=== PATIENT | male | born 1935 | race Caucasian/White ===

== ENCOUNTER → 2018-05-19 | Outpatient (CLI) | payer MEDICARE ==
[~2018-05-19] MED LIST: ALLOPURINOL 10100 M1 PO; ALLOPURINOL 10100 M2 PO; AMARYL4 MG PO; ASPIR 8181 MG PO; DEMADEX20 MG PO; DOXAZOSIN MESYLA2 MG PO; FENOFIBRATE160 MG PO; FISH OIL 1,001000 M2 PO; FLECAINIDE ACET50 M2 PO; FLOMAX0.4 MG PO; KLOR-CON 1010 MEQ PO; LASIX 20 MG TAB20 MG PO; RANITIDINE 150150 M1 PO; XARELTO20 MG PO; ZOCOR20 MG PO
[2018-05-19 09:06] VITALS: BP 133/79
[2018-05-19 09:10] LABS: HEMATOCRIT 40.2 % (42.0-52.0); HEMOGLOBIN 13.4 gm/dL (14.0-18.0); MCH 29.6 pg (26.0-34.0); MCHC 33.3 g/dL (28.0-37.0); MCV 88.7 fL (80.0-100.0); MPV 8.6 fl. (7.2-11.1); RBC 4.53 mil/uL (4.50-6.00); RDW-CV 13.9 % (10.5-14.5); WBC 6.7 thou/uL (4.0-11.0)
[2018-05-19 09:24] VITALS: BP 133/79
[2018-05-19 09:24] LABS: ALBUMIN 3.5 g/dL (3.4-5.0); CALCIUM 8.5 mg/dL (8.5-10.1); CREATININE 1.5 mg/dL (0.6-1.3); POTASSIUM 4.2 mmol/L (3.5-5.1); TOTAL BILIRUBIN 0.4 mg/dL (<0.1-1.0); TOTAL PROTEIN 6.5 g/dL (6.4-8.2)
[2018-05-19 09:30] VITALS: BP 134/84
[2018-05-19 09:32] LABS: APTT 45.4 Seconds (25.0-31.3); INR 1.2; PROTIME 12.4 Seconds (9.20-11.50)
[2018-05-19 09:42] VITALS: BP 120/70
[2018-05-19 09:46] VITALS: BP 127/82
--- NOTE | 2018-05-19 17:09 | EKG ---
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1935 Requested By: Brooks Kelley Order Number: [id number] Reading MD: Brooks Kelley Measurements Intervals [place] Rate: 69 P: 0 MD: 88 QRS: -73 QRSD: 171 T: 96 QT: 431 QTc: 462 Interpretive Statements Ventricular-paced complexes No further analysis attempted due to paced rhythm Baseline wander in lead(s) V1 No previous ECG available for comparison Electronically Signed On 05-19-2018 17:09:38 CDT by Brooks Kelley [email or web address] <ELECTRONICALLY SIGNED> By: Brooks Kelley MD, [facility] 05/19/18 1709 1 1 Brooks Kelley MD, FACC /EPI
--- NOTE | 2018-06-01 08:39 | CARD ---
[address] [address] CARDIAC CATH REPORT Name: PRAFUL ROSENBERG [id number] Admission: 05/19/18 Attend Phys: Brooks Kelley MD Discharge: Date of : 37 Report #: [id number] THIS REPORT FOR: //name// CC: Kurt Kelley DATE OF SERVICE: 05/19/2018 PROCEDURE: DC cardioversion. INDICATION: Persistent atrial fibrillation. DESCRIPTION OF PROCEDURE: After informed consent was obtained, the patient was brought to the cardiac holding area. The patient was given intravenous fentanyl and Versed for conscious sedation. Once the patient was adequately sedated, he was cardioverted to normal sinus rhythm with a single biphasic shock of 300 joules. The patient tolerated the procedure well and without complication. IMPRESSION: 1. Persistent atrial fibrillation. 2. Successful direct current cardioversion to normal sinus rhythm. <ELECTRONICALLY SIGNED> By: Brooks Kelley MD, FACC 06/01/18 0839 1323 1441[facility] Олег Kelley MD, FACC /nt
== END | disposition home or self-care (01) ==
LOC: M.CL 08:02
PROVIDERS: Internal Medicine Cardiovascular Disease
DX: I48.91 Unspecified atrial fibrillation (principal); Z79.01 Long term (current) use of anticoagulants; Z79.899 Other long term (current) drug therapy

== ENCOUNTER → 2020-05-23 | Outpatient (CLI) | payer MEDICARE ==
[2020-05-23] VITALS (8 sets, daily range): BP systolic 102–127; BP diastolic 58–699
[~2020-05-23] MED LIST changes: +AMARYL2 MG PO; +CHERRY TART PO; +COREG6.25 MG PO; +ENTRESTO 49 MG1 EACH PO; +MULTI VITAMIN1 EACH PO; +PRESERVISION A1 EAC2 PO; +STOOL SOFTENER100 M1 PO; +ZOCOR 10 MG TAB10 M1 PO
--- NOTE | ~2020-05-23 | CARD ---
[address] [address] CARDIAC CATH REPORT Name: PRAFUL ROSENBERG Room: [facility]#: [id number] Admission: 05/23/20 Attend Phys: Brooks Kelley MD Discharge: Date of : 37 Report #: [id number] THIS REPORT FOR: cc: Kurt Dupree,Brooks Hawthorne MD [facility] ~ DATE OF SERVICE: 05/23/2020 PROCEDURE: DC cardioversion. INDICATION: Persistent atrial fibrillation. DESCRIPTION OF PROCEDURE: After informed consent was obtained, the patient was brought to the cardiac catheterization holding area. The patient was given intravenous Versed and fentanyl for conscious sedation. Once the patient was adequately sedated, he was shocked into an atrially and ventricularly paced rhythm after a single biphasic shock of 300 joules. The patient tolerated the procedure well without complication. IMPRESSION: 1. Persistent atrial fibrillation. 2. Successful DC cardioversion to AV paced rhythm. By: 0921 [id number] Олег Kelley MD, FACC /nt
--- NOTE | 2020-05-23 11:48 | EKG ---
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1935 Requested By: Brooks Kelley Order Number: [id number] Reading MD: Brooks Kelley Measurements Intervals [place] Rate: 72 P: 0 DE: 160 QRS: -90 QRSD: 205 T: 88 QT: 472 QTc: 517 Interpretive Statements Ventricular-paced complexes No further rhythm analysis attempted due to paced rhythm Nonspecific IVCD with LAD LVH with secondary repolarization abnormality Compared to ECG 05/19/2018 09:02:48 Intraventricular conduction delay now present Left ventricular hypertrophy now present Early repolarization now present Electronically Signed On 05-23-2020 11:48:02 CDT by Brooks Kelley [email or web address] <ELECTRONICALLY SIGNED> By: Brooks Kelley MD, FACC 05/23/20 1148 2 2 Brooks Kelley MD, FACC /EPI
--- NOTE | 2020-05-23 11:48 | EKG ---
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1935 Requested By: Brooks Kelley Order Number: [id number] Reading MD: Brooks Kelley Measurements Intervals [place] Rate: 68 P: 0 LA: 116 QRS: 269 QRSD: 204 T: 107 QT: 463 QTc: 493 Interpretive Statements Ventricular-paced complexes No further analysis attempted due to paced rhythm Compared to ECG 05/23/2020 09:13:39 Intraventricular conduction delay no longer present Left ventricular hypertrophy no longer present Early repolarization no longer present Electronically Signed On 05-23-2020 11:48:17 CDT by Brooks Kelley [email or web address] <ELECTRONICALLY SIGNED> By: Brooks Kelley MD, FAC 05/23/20 1148 1032 1032 Brooks Kelley MD, [facility] /EPI
== END | disposition home or self-care (01) ==
LOC: M.CL 08:30
PROVIDERS: ATTEND Internal Medicine Cardiovascular Disease
DX: I48.19 Other persistent atrial fibrillation (principal); Z79.01 Long term (current) use of anticoagulants; Z79.899 Other long term (current) drug therapy

== ENCOUNTER → 2020-07-18 | Outpatient (CLI) | payer MEDICARE ==
[2020-07-18] VITALS (8 sets, daily range): BP systolic 105–124; BP diastolic 63–82
[~2020-07-18] MED LIST changes: +FLECAINIDE ACE150 MG PO; +PACERONE200 MG PO
[2020-07-18 10:19] LABS: HEMATOCRIT 41.9 % (42.0-52.0); HEMOGLOBIN 14.2 gm/dL (14.0-18.0); MCH 30.3 pg (26.0-34.0); MCHC 33.8 g/dL (28.0-37.0); MCV 89.7 fL (80.0-100.0); MPV 8.4 fl. (7.2-11.1); RBC 4.67 mil/uL (4.50-6.00); RDW-CV 13.6 % (10.5-14.5); WBC 7.4 thou/uL (4.0-11.0)
[2020-07-18 10:32] LABS: APTT 45.7 Seconds (25.0-31.3); INR 1.2
[2020-07-18 10:36] LABS: ALBUMIN 3.5 g/dL (3.4-5.0); CALCIUM 8.3 mg/dL (8.5-10.1); CREATININE 1.2 mg/dL (0.6-1.3); POTASSIUM 3.9 mmol/L (3.5-5.1); TOTAL BILIRUBIN 0.9 mg/dL (<0.1-1.0); TOTAL PROTEIN 6.7 g/dL (6.4-8.2)
--- NOTE | 2020-07-28 08:22 | CARD ---
[address] [address] CARDIAC CATH REPORT Name: PRAFUL ROSENBERG Room: [facility]#: [id number] Admission: 07/18/20 Attend Phys: Brooks Kelley MD Discharge: Date of : 37 Report #: [id number] THIS REPORT FOR: cc: Kurt Dupree Mark DO Liston, Michael J. MD [facility] ~ DOC #: [id number] cc: DO Brooks Amor MD DATE OF SERVICE: 07/18/2020 CARDIAC PROCEDURE PROCEDURE: Direct current cardioversion. INDICATION: Persistent atrial fibrillation. DESCRIPTION OF PROCEDURE: After informed consent was obtained, the patient was brought to the cardiac holding area. The patient was given 2 mg of intravenous Versed and 50 mg of intravenous fentanyl for conscious sedation. Once the patient was adequately sedated, he was cardioverted from persistent atrial fibrillation to sinus rhythm with ventricular pacing with a single biphasic shock of 360 joules. The patient tolerated the procedure well and without complication. IMPRESSION: 1. Persistent atrial fibrillation. 2. Successful direct current cardioversion to sinus rhythm with ventricular pacing. Brooks Kelley MD MJL/LUCAS <ELECTRONICALLY SIGNED> By: Brooks Kelley MD, [facility] 07/28/20 0822 1456 [id number] Centerkhushi Kelley MD, GERSONC /nt
== END | disposition home or self-care (01) ==
LOC: M.CL 09:19
PROVIDERS: ATTEND Internal Medicine Cardiovascular Disease
DX: I48.19 Other persistent atrial fibrillation (principal); Z79.899 Other long term (current) drug therapy; Z79.01 Long term (current) use of anticoagulants